=== PATIENT | female | born 1985 | race Two or more races ===

== ENCOUNTER 2019-01-31 12:30 | Inpatient (IN) | payer OTHER ==
[~2019-01-31] VITALS: Ht 152.4 cm; Wt 80.3 kg
[2019-02-28] MEDS ORDERED: SYNTHROID75 MCG PO (17:48)
[2019-02-28] MEDS ORDERED: ZANTAC150 M3 PO (17:49)
[2019-02-28] MEDS ORDERED: PRENATAL TABLE1 EAC1 PO (17:50)
[2019-03-04] MEDS ORDERED: ANALPRAM HC 2.530 GM RECTAL (10:10)
== END 2019-03-04 13:34 | DRG 807 ==
LOC: OB/GYN 02-27 12:30 → LDR 02-28 16:03 → OB/GYN 03-01 17:28
PROVIDERS: ADMIT Obstetrics & Gynecology
PROC: 3E0P7VZ Introduction of Hormone into Female Reproductive, Via Natural or Artificial Opening (ICD-10-PCS; 2019-02-28)
PROC: 4A1HXCZ Monitoring of Products of Conception, Cardiac Rate, External Approach (ICD-10-PCS; 2019-02-28)
PROC: 10E0XZZ Delivery of Products of Conception, External Approach (ICD-10-PCS; principal; 2019-03-01)
PROC: 0W8NXZZ Division of Female Perineum, External Approach (ICD-10-PCS; 2019-03-01)
PROC: 3E033VJ Introduction of Other Hormone into Peripheral Vein, Percutaneous Approach (ICD-10-PCS; 2019-03-01)
DX: O80 Encounter for full-term uncomplicated delivery (principal); Z37.0 Single live birth; Z3A.40 40 weeks gestation of pregnancy

== ENCOUNTER 2019-02-20 12:17 | Outpatient (CLI) | payer OTHER | END 2019-02-20 13:03 | disposition home or self-care (01) | LOC: NST 12:17 | DX: Z34.83 Encounter for supervision of other normal pregnancy, third trimester (principal) ==

== ENCOUNTER 2019-02-27 08:49 | Outpatient (CLI) | payer OTHER ==
[2019-02-28] MEDS ORDERED: SYNTHROID75 MCG PO (17:48)
[2019-02-28] MEDS ORDERED: ZANTAC150 M3 PO (17:49)
[2019-02-28] MEDS ORDERED: PRENATAL TABLE1 EAC1 PO (17:50)
== END 2019-02-27 09:51 | disposition home or self-care (01) ==
LOC: NST 08:49
DX: Z34.83 Encounter for supervision of other normal pregnancy, third trimester (principal)

== ENCOUNTER 2022-04-30 14:49 | Outpatient (CLI) | payer OTHER ==
[~2022-04-30 14:49] MED LIST: ANALPRAM HC 2.530 GM RECTAL; PRENATAL TABLE1 EAC1 PO; SYNTHROID75 MCG PO; ZANTAC150 M3 PO
== END 2022-04-30 16:40 | disposition home or self-care (01) ==
LOC: NST 14:49
PROVIDERS: ATTEND Obstetrics & Gynecology Maternal & Fetal Medicine
DX: Z34.83 Encounter for supervision of other normal pregnancy, third trimester (principal); Z3A.30 30 weeks gestation of pregnancy

== ENCOUNTER 2022-05-01 12:39 | Outpatient (CLI) | payer OTHER | END 2022-05-01 12:48 | disposition home or self-care (01) | LOC: NST 12:39 | PROVIDERS: ATTEND Obstetrics & Gynecology Maternal & Fetal Medicine | DX: Z34.83 Encounter for supervision of other normal pregnancy, third trimester (principal); Z3A.30 30 weeks gestation of pregnancy ==

== ENCOUNTER 2022-05-05 14:56 | Inpatient (IN) | payer OTHER ==
[~2022-05-05] VITALS: Ht 152.4 cm; Wt 77.1 kg
[2022-05-06] MEDS ORDERED: ST. JOSEPH ASPI81 M2 (08:11)
== END 2022-05-08 10:23 | disposition home or self-care (01) | DRG 833 ==
LOC: NST 14:56 → LDR 16:04 → OB/GYN 05-07 13:32
PROVIDERS: ADMIT Obstetrics & Gynecology Maternal & Fetal Medicine; ATTEND Obstetrics & Gynecology Maternal & Fetal Medicine
PROC: 4A1HXCZ Monitoring of Products of Conception, Cardiac Rate, External Approach (ICD-10-PCS; principal; 2022-05-05)
DX: O47.03 False labor before 37 completed weeks of gestation, third trimester (principal); O30.003 Twin pregnancy, unspecified number of placenta and unspecified number of amniotic sacs, third trimester; Z20.822 Contact with and (suspected) exposure to COVID-19; Z3A.30 30 weeks gestation of pregnancy

== ENCOUNTER 2022-05-13 09:57 | Outpatient (CLI) | payer OTHER ==
[~2022-05-13 09:57] MED LIST changes: +ST. JOSEPH ASPI81 M2
== END 2022-05-13 10:36 | disposition home or self-care (01) ==
LOC: NST 09:57
PROVIDERS: ATTEND Obstetrics & Gynecology Maternal & Fetal Medicine
DX: Z34.83 Encounter for supervision of other normal pregnancy, third trimester (principal)

== ENCOUNTER 2022-05-20 10:44 | Outpatient (CLI) | payer OTHER | END 2022-05-20 11:31 | disposition home or self-care (01) | LOC: NST 10:44 | PROVIDERS: ATTEND Obstetrics & Gynecology Maternal & Fetal Medicine | DX: Z34.83 Encounter for supervision of other normal pregnancy, third trimester (principal) ==

== ENCOUNTER 2022-06-03 10:23 | Outpatient (CLI) | payer OTHER | END 2022-06-03 11:30 | disposition home or self-care (01) | LOC: NST 10:23 | PROVIDERS: ATTEND Obstetrics & Gynecology Maternal & Fetal Medicine | DX: Z34.83 Encounter for supervision of other normal pregnancy, third trimester (principal) ==

== ENCOUNTER 2022-06-12 10:33 | Outpatient (CLI) | payer OTHER | END 2022-06-12 11:19 | disposition home or self-care (01) | LOC: NST 10:33 | PROVIDERS: ATTEND Obstetrics & Gynecology Maternal & Fetal Medicine | DX: Z23 Encounter for immunization (principal) ==

== ENCOUNTER 2022-06-16 10:14 | Outpatient (CLI) | payer OTHER | END 2022-06-16 11:44 | disposition home or self-care (01) | LOC: NST 10:14 | PROVIDERS: ATTEND Obstetrics & Gynecology Maternal & Fetal Medicine | DX: Z34.83 Encounter for supervision of other normal pregnancy, third trimester (principal) ==

== ENCOUNTER 2022-06-17 10:45 | Inpatient (IN) | payer OTHER ==
[~2022-06-17] VITALS: Ht 152.4 cm; Wt 2.3 kg
[2022-06-17] MEDS ORDERED: IRON PO (13:55)
[2022-06-17] MEDS ORDERED: PRENATA PO (13:55)
[2022-06-17] MEDS ORDERED: PROCARD PO (13:56)
[2022-06-17] MEDS ORDERED: PROCARDI PO (13:56)
[2022-06-19] MEDS ORDERED: NIFEDIPINE ER60 M1 (16:30)
[2022-06-19] MEDS ORDERED: INTEGRA F CAPS1 EAC1 (16:30)
[2022-06-19] MEDS ORDERED: ST. JOSEPH ASPI81 M2 (16:30)
[2022-06-19] MEDS ORDERED: NIFEDIPINE ER30 M1 (16:31)
[2022-06-19] MEDS ORDERED: PRENATAL + DHA1 EAC1 (16:32)
[2022-06-22] MEDS ORDERED: OXYC1TAB9 PO (07:40)
[2022-06-22] MEDS ORDERED: KETO10TA2 PO (07:40)
== END 2022-06-22 11:41 | disposition home or self-care (01) | DRG 788 ==
LOC: OB/GYN 06-19 07:00 → O/R 06-19 12:30 → OB/GYN 06-19 16:31
PROVIDERS: ADMIT Obstetrics & Gynecology Maternal & Fetal Medicine; ATTEND Obstetrics & Gynecology Maternal & Fetal Medicine
PROC: 4A1HXCZ Monitoring of Products of Conception, Cardiac Rate, External Approach (ICD-10-PCS; 2022-06-19)
PROC: 10D00Z1 Extraction of Products of Conception, Low, Open Approach (ICD-10-PCS; principal; 2022-06-19 13:00)
DX: O32.1XX2 Maternal care for breech presentation, fetus 2 (principal); O30.043 Twin pregnancy, dichorionic/diamniotic, third trimester; Z3A.37 37 weeks gestation of pregnancy; Z37.2 Twins, both liveborn; Z20.822 Contact with and (suspected) exposure to COVID-19